=== PATIENT | female | born 2000 | race Hispanic/Latino ===

== ENCOUNTER 2022-05-19 17:20 | Emergency (ER) | payer OTHER, SELFPAY ==
[2022-05-19 19:22] LABS: BHCG - Serum POSITIVE (NEGATIVE); Pregs Control Background? CLEAR/WHITE (CLR/WHITE); Pregs Control Bar Appear? YES (CONTROL BAR)
[2022-05-19] MEDS ORDERED: Acetaminophen 500 MG TAB ONE (19:49)
== END 2022-05-19 20:40 | disposition home or self-care (01) ==
LOC: MADERS 17:20
DX: O99.891 Other specified diseases and conditions complicating pregnancy (principal); M94.0 Chondrocostal junction syndrome [Tietze]; Z3A.01 Less than 8 weeks gestation of pregnancy
CPT/HCPCS: 71045; 84702; 84703; 93005

== ENCOUNTER 2022-06-13 06:51 | Emergency (ER) | payer MEDICAID, OTHER ==
[2022-06-13 09:11] LABS: Bilirubin Negative (Negative); Blood, Urine Small (Negative); Clarity Clear (Clear); Glucose, Urine (Dipstick) Negative (Negative); Ketone, Urine Negative (Negative); Leukocyte Negative (Negative); Nitrite Negative (Negative); Protein, Urine (Dipstick) Negative (Neg-Trace); Urobilinogen 0.2 mg/dL (Less than 2); pH, Urine 6.5 (5.0-9.0)
[2022-06-13 09:16] LABS: Specific Gravity, Urine 1.003 (1.002-1.036)
[2022-06-13 09:33] LABS: Bacteria/HPF Rare-Few HPF (None Seen); RBC/HPF 0-3 HPF (0-3); WBC/HPF 0-3 HPF (0-3)
== END 2022-06-13 09:45 | disposition home or self-care (01) ==
LOC: MADERS 06:51
DX: O20.0 Threatened abortion (principal); Z3A.08 8 weeks gestation of pregnancy
CPT/HCPCS: 36415; 76815; 81003; 81015; 84702; 86900; 86901

== ENCOUNTER 2024-08-03 11:12 | Emergency (ER) | payer MEDICAID, OTHER, SELFPAY ==
[2024-08-03] MEDS ORDERED: Ondansetron ODT 4 MG TAB ONE (11:54)
[2024-08-03] MEDS ORDERED: Acetaminophen 325 MG TAB ONE ×2 (11:59→12:08)
[2024-08-03 12:34] LABS: Bilirubin Negative (Negative); Blood, Urine Moderate (Negative); Glucose, Urine (Dipstick) Negative (Negative); Ketone, Urine Negative (Negative); Leukocyte Negative (Negative); Nitrite Negative (Negative); Protein, Urine (Dipstick) Negative (Neg-Trace); Specific Gravity, Urine 1.025 (1.005-1.030); Urobilinogen 0.2 mg/dL (Less than 2)
[2024-08-03 12:35] LABS: Pregnancy Test - Urine (BHCG) Negative (Negative); Pregu Control Background? CLEAR/WHITE (CLR/WHITE); Pregu Control Bar Appear? YES (CONTROL BAR); Specific Gravity 1.025 (1.002-1.036)
[2024-08-03 12:37] LABS: Clarity Hazy (Clear)
[2024-08-03 12:38] LABS: Bacteria/HPF 1+ HPF (None Seen); CAUTI Indications for Culture Dysuria,urgency,freq; RBC/HPF 21-50 HPF (0-3); WBC/HPF 0-3 HPF (0-3)
[2024-08-03 12:39] LABS: Urine Culture Reflex No No
== END 2024-08-03 13:04 | disposition home or self-care (01) ==
LOC: MADERS 11:12
DX: N39.0 Urinary tract infection, site not specified (principal); R11.2 Nausea with vomiting, unspecified
CPT/HCPCS: 81001; 81025; 99284; Q0162